=== PATIENT | female | born 1940 | race Caucasian/White ===

== ENCOUNTER 2016-09-19 21:22 | Inpatient (IN) | payer OTHER, MEDICARE ==
[~2016-09-19] VITALS: Ht 157.5 cm; Wt 83.9 kg
[~2016-09-19 21:22] MED LIST: BENA10TA PO; LANS30CA10 PO; MAXIDE PO; VALS160T2 PO
[2016-09-19 21:31] VITALS: BP_SYST 126
[2016-09-19] MEDS ORDERED: NACL 0.9% 1,000 ML IV ONE (21:43)
[2016-09-19 22:09] LABS: BASOPHILS % (AUTO) 0.3 % (0.0-2.0); EOSINOPHILS % (AUTO) 0.1 % (0.0-4.0); HEMATOCRIT 32.8 % (36-48); HEMOGLOBIN 11.5 g/dL (12.0-16.0); LYMPHOCYTES # (AUTO) 0.7 K/uL (1.0-5.5); LYMPHOCYTES % (AUTO) 11.9 % (20.5-51.5); MEAN CORPUSCULAR HEMOGLOBIN 38 pg (27-31); MEAN CORPUSCULAR HGB CONC 35 % (32-36); MEAN CORPUSCULAR VOLUME 109 fL (79.0-98.0); MONOCYTES # (AUTO) 0.6 K/uL (0.0-1.0); NEUTROPHILS # (AUTO) 4.4 K/uL (1.8-7.7); NEUTROPHILS % (AUTO) 76.7 % (40.0-70.0); PLATELET COUNT (AUTO) 258 K/uL (130-430); RED CELL DISTRIBUTION WIDTH 15.4 % (9.0-15.0); WHITE BLOOD COUNT (AUTO) 5.7 K/uL (4.8-10.8)
[2016-09-19 22:16] LABS: ANION GAP 7 (5-15); CALCIUM 8.7 mg/dL (8.4-11.0); CHLORIDE 105 mmol/L (98-107); GLUCOSE 96 mg/dL (70-99); POTASSIUM 3.6 mmol/L (3.5-5.1); SODIUM SERUM 138 mmol/L (136-145); UREA NITROGEN, BLOOD 17 mg/dL (8-21)
[2016-09-19 22:21] LABS: ALANINE AMINOTRANSFERASE 22 U/L (12-78); ALBUMIN 3.4 g/dL (3.4-4.8); ASPARTATE AMINOTRANSFERASE 22 U/L (10-37); TOTAL BILIRUBIN 0.5 mg/dL (0.0-1.0); TOTAL PROTEIN, SERUM 6.6 g/dL (6.4-8.3)
[2016-09-19 23:06] LABS: BILIRUBIN,URINE NEGATIVE (NEGATIVE); BLOOD, URINE NEGATIVE (NEGATIVE); CLARITY/URINE CLEAR (CLEAR); COLOR,URINE YELLOW (YELLOW); GLUCOSE,URINE NEGATIVE (NEGATIVE); KETONES,URINE NEGATIVE (NEGATIVE); LEUKOCYTE ESTERASE ,URINE 2+ (NEGATIVE); NITRITE, URINE NEGATIVE (NEGATIVE); PH,URINE 7.5 (5.0-8.0); PROTEIN URINE NEGATIVE (NEGATIVE); UROBILINOGEN,URINE 0.2 (0.2-1.0)
[2016-09-19 23:22] LABS: BACTERIA,URINE FEW /HPF (None Seen); RBC,URINE 0-3 /HPF (0-3); WBC,URINE 50-80 /HPF (0-3)
[2016-09-19 23:23] LABS: MUCUS,URINE None Seen /LPF (None Seen)
[2016-09-19] MEDS ORDERED: cefTRIAXone 1 GM IVPB PREMIX 50 ML IV ONE (23:45)
[2016-09-20] MEDS ORDERED: HYDROcodone/ACETAMIN 10-325 MG TAB PO ONE (00:45)
[2016-09-20] MEDS ORDERED: BENA20TA2 PO (01:25)
[2016-09-20] MEDS ORDERED: GLU500 PO (01:25)
[2016-09-20] MEDS ORDERED: POTA2TAB18 PO (01:25)
[2016-09-20] MEDS ORDERED: DOCU250C PO (01:25)
[2016-09-20] MEDS ORDERED: CALC-995 PO (01:25)
[2016-09-20] MEDS ORDERED: ALPH200T PO (01:25)
[2016-09-20] MEDS ORDERED: ESCI5TAB PO (01:25)
[2016-09-20] MEDS ORDERED: AMLO5TAB4 PO (01:25)
[2016-09-20] MEDS ORDERED: OMEG300C3 PO (01:25)
[2016-09-20] MEDS ORDERED: CAPE150T PO (01:25)
[2016-09-20] MEDS ORDERED: GABA-531 PO (01:25)
[2016-09-20] MEDS ORDERED: OMEP20CA10 PO (01:25)
[2016-09-20] MEDS ORDERED: METO50TA7 PO (01:25)
[2016-09-20] MEDS ORDERED: LIP10 PO (01:25)
[2016-09-20] MEDS ORDERED: BACL10TA PO (01:25)
[2016-09-20 01:54] VITALS: BP_SYST 142
[2016-09-20] MEDS ORDERED: HYDR-4100 PO (02:19)
[2016-09-20] MEDS: MORPHINE 2 MG/ML INJ. SYRINGE IVP PRN ×2 (03:53→09:39)
[2016-09-20 04:23] VITALS: BP_SYST 139
[2016-09-20] MEDS: HYDROcodone/ACETAMIN 10-325 MG TAB PO PRN ×2 (05:02→21:36)
[2016-09-20] MEDS ORDERED: PIPERACILLIN/TAZOBACTAM 3.375 GM/VIAL (ZOSYN) IV ONE (06:01)
[2016-09-20] MEDS: PIPERACILLIN/TAZO 3.375 GM in NS 50 ML IV SCH ×3 (06:24→17:32)
[2016-09-20 08:22] VITALS: BP_SYST 127
[2016-09-20] MEDS ORDERED: PANTOPRAZOLE SODIUM 40 MG TAB PO ONE (11:30)
[2016-09-20 11:44] VITALS: BP_SYST 134
[2016-09-20] MEDS ORDERED: POTASSIUM CHLORIDE 20 MEQ TAB.PRT.SR PO ONE (12:45)
[2016-09-20] MEDS: CALCIUM CARBONATE 500 MG/ TAB.CHEW PO PRN ×2 (12:47→20:27)
[2016-09-20 15:24] VITALS: BP_SYST 147
[2016-09-20] MEDS: ONDANSETRON HCL 4 MG/2 ML VIAL IVP PRN (17:32)
[2016-09-20 20:37] VITALS: BP_SYST 141
[2016-09-20] MEDS ORDERED: MILK OF MAGNESIA 30 ML UDC PO PRN (22:00)
[2016-09-21 00:01] VITALS: BP_SYST 147
[2016-09-21] MEDS: PIPERACILLIN/TAZO 3.375 GM in NS 50 ML IV SCH ×3 (00:39→11:49)
[2016-09-21] MEDS: MORPHINE 2 MG/ML INJ. SYRINGE IVP PRN (00:48)
[2016-09-21] MEDS: HYDROcodone/ACETAMIN 10-325 MG TAB PO PRN ×4 (03:20→21:59)
[2016-09-21 04:52] VITALS: BP_SYST 125
[2016-09-21 07:39] LABS: HEMATOCRIT 32.3 % (36-48); HEMOGLOBIN 11.1 g/dL (12.0-16.0); LYMPHOCYTES # (AUTO) 0.6 K/uL (1.0-5.5); LYMPHOCYTES % (AUTO) 11.5 % (20.5-51.5); MEAN CORPUSCULAR HEMOGLOBIN 38 pg (27-31); MEAN CORPUSCULAR HGB CONC 34 % (32-36); MEAN CORPUSCULAR VOLUME 110 fL (79.0-98.0); MONOCYTES # (AUTO) 0.7 K/uL (0.0-1.0); MONOCYTES % (AUTO) 14.7 % (1.7-9.3); NEUTROPHILS # (AUTO) 3.5 K/uL (1.8-7.7); NEUTROPHILS % (AUTO) 71.8 % (40.0-70.0); PLATELET COUNT (AUTO) 231 K/uL (130-430); RED BLOOD CELL COUNT(AUTO) 2.93 MIL/uL (4.2-6.2); RED CELL DISTRIBUTION WIDTH 15.1 % (9.0-15.0); WHITE BLOOD COUNT (AUTO) 4.8 K/uL (4.8-10.8)
[2016-09-21 08:01] VITALS: BP_SYST 138
[2016-09-21 08:05] LABS: ALANINE AMINOTRANSFERASE 38 U/L (12-78); ANION GAP 4 (5-15); ASPARTATE AMINOTRANSFERASE 37 U/L (10-37); CALCIUM 8.4 mg/dL (8.4-11.0); CHLORIDE 105 mmol/L (98-107); CHOLESTEROL 147 mg/dL (<200); CREATININE 0.88 mg/dL (0.55-1.30); GLUCOSE 113 mg/dL (70-99); HDL CHOLESTEROL 38 mg/dL (>55); LDL CHOLESTEROL 84 mg/dL (<100); POTASSIUM 3.6 mmol/L (3.5-5.1); SODIUM SERUM 137 mmol/L (136-145); THYROID STIMULATING HORMONE 3.21 uIu/mL (0.34-4.82); TOTAL BILIRUBIN 0.4 mg/dL (0.0-1.0); TOTAL PROTEIN, SERUM 6.1 g/dL (6.4-8.3); TRIGLYCERIDES 107 mg/dL (30-150); UREA NITROGEN, BLOOD 14 mg/dL (8-21)
[2016-09-21] MEDS: PANTOPRAZOLE SODIUM 40 MG TAB PO SCH (08:49)
[2016-09-21] MEDS ORDERED: HYDROcodone/ACETAMIN 10-325 MG TAB PO PRN (09:45)
[2016-09-21 11:33] VITALS: BP_SYST 133
[2016-09-21] MEDS: INSULIN REGULAR, HUMAN 100 UNITS/ML, 10 ML VIAL (novoLIN R) SUBCUT PRN (11:52)
[2016-09-21] MEDS: BACLOFEN 10 MG TABLET PO SCH ×2 (13:23→21:58)
[2016-09-21] MEDS ORDERED: cefTRIAXone 1 GM IVPB PREMIX 50 ML IV ONE (15:15)
[2016-09-21] MEDS ORDERED: PIPERACILLIN/TAZO 3.375 GM in NS 50 ML IV ONE (15:15)
[2016-09-21 15:26] VITALS: BP_SYST 141
[2016-09-21 19:30] VITALS: BP_SYST 149
[2016-09-21] MEDS: DOCUSATE SODIUM 250 MG CAPSULE PO SCH (20:26)
[2016-09-21] MEDS: BENAZEPRIL HCL 20 MG TABLET (LOTENSIN) PO SCH (20:27)
[2016-09-21] MEDS: ATORVASTATIN 10 MG TABLET PO SCH (20:27)
[2016-09-21] MEDS: GABAPENTIN 300 MG CAPSULE PO SCH (20:27)
[2016-09-21] MEDS: amLODIPine BESYLATE 5 MG TABLET PO SCH (20:28)
[2016-09-21] MEDS: METOPROLOL SUCCINATE 50 MG TAB.SR.24H (TOPROL XL) PO SCH (20:29)
[2016-09-22 00:53] VITALS: BP_SYST 137
[2016-09-22 04:15] VITALS: BP_SYST 132
[2016-09-22] MEDS: BACLOFEN 10 MG TABLET PO SCH ×3 (06:19→21:34)
[2016-09-22] MEDS: HYDROcodone/ACETAMIN 10-325 MG TAB PO PRN ×4 (06:32→21:43)
[2016-09-22 08:23] VITALS: BP_SYST 140
[2016-09-22] MEDS: CITALOPRAM HYDROBROMIDE 20 MG TABLET PO SCH (08:27)
[2016-09-22] MEDS: BENAZEPRIL HCL 20 MG TABLET (LOTENSIN) PO SCH ×2 (08:27→21:00)
[2016-09-22] MEDS: GABAPENTIN 300 MG CAPSULE PO SCH ×3 (08:27→21:35)
[2016-09-22] MEDS: OMEPRAZOLE 20 MG CAPSULE.DR (PriLOSEC) PO SCH (08:27)
[2016-09-22] MEDS: DOCUSATE SODIUM 250 MG CAPSULE PO SCH ×2 (08:27→21:33)
[2016-09-22] MEDS: amLODIPine BESYLATE 5 MG TABLET PO SCH ×2 (08:27→21:36)
[2016-09-22] MEDS: cefTRIAXone 1 GM IVPB PREMIX 50 ML IV SCH (08:28)
[2016-09-22] MEDS: PANTOPRAZOLE SODIUM 40 MG TAB PO SCH (08:34)
[2016-09-22] MEDS ORDERED: metFORMIN HCL 500 MG TABLET PO SCH (09:00)
[2016-09-22 12:00] VITALS: BP_SYST 140
[2016-09-22 16:11] VITALS: BP_SYST 133
[2016-09-22] MEDS: metFORMIN HCL 500 MG TABLET PO SCH (17:24)
[2016-09-22] MEDS: ONDANSETRON HCL 4 MG/2 ML VIAL IVP PRN (19:07)
[2016-09-22] MEDS: ATORVASTATIN 10 MG TABLET PO SCH (21:34)
[2016-09-22] MEDS: METOPROLOL SUCCINATE 50 MG TAB.SR.24H (TOPROL XL) PO SCH (21:36)
[2016-09-22 23:36] VITALS: BP_SYST 134
[2016-09-23 03:53] VITALS: BP_SYST 142
[2016-09-23] MEDS: BACLOFEN 10 MG TABLET PO SCH ×2 (07:00→14:00)
[2016-09-23] MEDS: HYDROcodone/ACETAMIN 10-325 MG TAB PO PRN (07:48)
[2016-09-23] MEDS: DOCUSATE SODIUM 250 MG CAPSULE PO SCH (07:49)
[2016-09-23] MEDS: OMEPRAZOLE 20 MG CAPSULE.DR (PriLOSEC) PO SCH (07:49)
[2016-09-23] MEDS: GABAPENTIN 300 MG CAPSULE PO SCH ×2 (07:49→15:00)
[2016-09-23] MEDS: PANTOPRAZOLE SODIUM 40 MG TAB PO SCH (07:49)
[2016-09-23] MEDS: BENAZEPRIL HCL 20 MG TABLET (LOTENSIN) PO SCH (07:49)
[2016-09-23] MEDS: amLODIPine BESYLATE 5 MG TABLET PO SCH (07:49)
[2016-09-23] MEDS: CITALOPRAM HYDROBROMIDE 20 MG TABLET PO SCH (07:50)
[2016-09-23 07:52] VITALS: BP_SYST 128
[2016-09-23] MEDS: cefTRIAXone 1 GM IVPB PREMIX 50 ML IV SCH (08:13)
[2016-09-23] MEDS: INSULIN REGULAR, HUMAN 100 UNITS/ML, 10 ML VIAL (novoLIN R) SUBCUT PRN (11:06)
[2016-09-23 12:00] VITALS: BP_SYST 156
[2016-09-23 12:53] VITALS: BP_SYST 133
[2016-09-23 16:00] VITALS: BP_SYST 142
[2016-09-23] MEDS: metFORMIN HCL 500 MG TABLET PO SCH (18:03)
[2016-09-23 20:09] VITALS: BP_SYST 143
== END 2016-09-23 20:05 | DRG 394 ==
LOC: SED 21:22 → STU 09-20 01:03 → SMU 09-22 09:46
PROVIDERS: ADMIT Internal Medicine Hospice and Palliative Medicine; ATTEND Internal Medicine Hospice and Palliative Medicine
DX: K52.0 Gastroenteritis and colitis due to radiation (principal); N39.0 Urinary tract infection, site not specified; C79.51 Secondary malignant neoplasm of bone; F11.20 Opioid dependence, uncomplicated; Z90.710 Acquired absence of both cervix and uterus; C50.919 Malignant neoplasm of unspecified site of unspecified female breast; E11.9 Type 2 diabetes mellitus without complications; G89.4 Chronic pain syndrome; I10 Essential (primary) hypertension; R29.6 Repeated falls; M54.5 Low back pain; K21.9 Gastro-esophageal reflux disease without esophagitis; K59.00 Constipation, unspecified; D53.9 Nutritional anemia, unspecified; R55 Syncope and collapse; E66.9 Obesity, unspecified; Z60.2 Problems related to living alone; F41.8 Other specified anxiety disorders; Y84.2 Radiological procedure and radiotherapy as the cause of abnormal reaction of the patient, or of later complication, without mention of misadventure at the time of the procedure; Z85.42 Personal history of malignant neoplasm of other parts of uterus; Z90.722 Acquired absence of ovaries, bilateral; Z90.49 Acquired absence of other specified parts of digestive tract; Z87.440 Personal history of urinary (tract) infections; Z87.891 Personal history of nicotine dependence; Z68.33 Body mass index [BMI] 33.0-33.9, adult; Z88.1 Allergy status to other antibiotic agents
CPT/HCPCS: 36415; 71010; 72100-TC; 80053; 80061; 81000-TC; 82962; 83880; 84443-TC; 84484; 85025; 87086; 93005; 93306; 96361; 96365; 97116-GP; 99285; J0696; J1815; J2270; J2405; J2543; J7030

== ENCOUNTER 2017-03-08 09:10 | Outpatient (CLI) | payer OTHER, MEDICARE ==
[~2017-03-08 09:10] MED LIST changes: +AMLO5TAB4 PO; +BACL10TA PO; -BENA10TA PO; +BENA20TA2 PO; +CALC-995 PO; +CAPE150T PO; +DOCU250C PO; +ESCI5TAB PO; +GABA-531 PO; +GLU500 PO; +HYDR-4100 PO; -LANS30CA10 PO; +LIP10 PO; -MAXIDE PO; +METO50TA7 PO; +OMEG300C3 PO; +OMEP20CA10 PO; +POTA2TAB18 PO; -VALS160T2 PO
[2017-03-08] MEDS ORDERED: DIATR MEGLU/DIATRIZ SOD 30 ML SOLUTION PO ONE (09:26)
[2017-03-08] MEDS ORDERED: IOHEXOL 100 ML IV ONE (11:04)
== END 2017-03-08 18:39 | disposition home or self-care (01) ==
LOC: SCT 09:10
PROVIDERS: ATTEND Internal Medicine Infectious Disease
DX: K46.9 Unspecified abdominal hernia without obstruction or gangrene (principal); J98.11 Atelectasis
CPT/HCPCS: 74177; Q9964; Q9967

== ENCOUNTER 2017-03-18 14:13 | Outpatient (CLI) | payer OTHER, MEDICARE ==
[2017-03-18 15:02] LABS: BILIRUBIN,URINE NEGATIVE (NEGATIVE); BLOOD, URINE NEGATIVE (NEGATIVE); CLARITY/URINE HAZY (CLEAR); COLOR,URINE YELLOW (YELLOW); GLUCOSE,URINE NEGATIVE (NEGATIVE); KETONES,URINE NEGATIVE (NEGATIVE); LEUKOCYTE ESTERASE ,URINE 2+ (NEGATIVE); NITRITE, URINE POSITIVE (NEGATIVE); PROTEIN URINE 1+ (NEGATIVE); UROBILINOGEN,URINE 0.2 (0.2-1.0)
[2017-03-18 15:10] LABS: BACTERIA,URINE MANY /HPF (None Seen); MUCUS,URINE None Seen /LPF (None Seen); RBC,URINE NONE SEEN /HPF (0-3); WBC,URINE 50-80 /HPF (0-3)
== END 2017-03-18 17:21 | disposition home or self-care (01) ==
LOC: SLB 14:13
PROVIDERS: ATTEND Internal Medicine Infectious Disease
DX: N39.0 Urinary tract infection, site not specified (principal)
CPT/HCPCS: 81000-TC; 87086; 87186-TC

== ENCOUNTER 2017-06-03 15:48 | Outpatient (CLI) | payer OTHER, MEDICARE ==
[2017-06-03 16:21] LABS: BILIRUBIN,URINE NEGATIVE (NEGATIVE); CLARITY/URINE CLOUDY (CLEAR); COLOR,URINE YELLOW (YELLOW); GLUCOSE,URINE NEGATIVE (NEGATIVE); KETONES,URINE TRACE (NEGATIVE); LEUKOCYTE ESTERASE ,URINE 2+ (NEGATIVE); NITRITE, URINE NEGATIVE (NEGATIVE); PROTEIN URINE 2+ (NEGATIVE); UROBILINOGEN,URINE 0.2 (0.2-1.0)
[2017-06-03 16:25] LABS: BLOOD, URINE TRACE (NEGATIVE)
[2017-06-03 16:31] LABS: BACTERIA,URINE FEW /HPF (None Seen); RBC,URINE 0-3 /HPF (0-3); URINE AMORPHOUS URATE 4+ /HPF (None Seen); WBC,URINE 20-50 /HPF (0-3)
== END 2017-06-03 17:41 | disposition home or self-care (01) ==
LOC: SLB 15:48
PROVIDERS: ATTEND Internal Medicine Infectious Disease
DX: N39.0 Urinary tract infection, site not specified (principal)
CPT/HCPCS: 81000-TC; 87086; 87186-TC

== ENCOUNTER 2017-07-20 09:22 | Outpatient (CLI) | payer OTHER, MEDICARE ==
[2017-07-20] MEDS ORDERED: BARIUM SULFATE 135 ML SUSP.RECON (E-Z-HD) PO ONE ×2 (09:38→09:47)
== END 2017-07-20 18:58 | disposition home or self-care (01) ==
LOC: SRD 09:22
PROVIDERS: ATTEND Internal Medicine Infectious Disease
DX: K44.9 Diaphragmatic hernia without obstruction or gangrene (principal); K21.9 Gastro-esophageal reflux disease without esophagitis; K22.4 Dyskinesia of esophagus; I10 Essential (primary) hypertension; E11.9 Type 2 diabetes mellitus without complications
CPT/HCPCS: 74220-TC

== ENCOUNTER → 2017-08-17 | Outpatient (CLI) | payer OTHER, MEDICARE ==
[2017-08-17 19:54] LABS: BILIRUBIN,URINE NEGATIVE (NEGATIVE); BLOOD, URINE NEGATIVE (NEGATIVE); CLARITY/URINE SL HAZY (CLEAR); COLOR,URINE YELLOW (YELLOW); GLUCOSE,URINE NEGATIVE (NEGATIVE); KETONES,URINE NEGATIVE (NEGATIVE); LEUKOCYTE ESTERASE ,URINE 1+ (NEGATIVE); NITRITE, URINE NEGATIVE (NEGATIVE); PH,URINE 5.5 (5.0-8.0); PROTEIN URINE NEGATIVE (NEGATIVE); UROBILINOGEN,URINE 0.2 (0.2-1.0)
[2017-08-17 20:11] LABS: BACTERIA,URINE FEW /HPF (None Seen); WBC,URINE NONE SEEN /HPF (0-3)
[2017-08-17 20:12] LABS: MUCUS,URINE None Seen /LPF (None Seen)
== END | disposition home or self-care (01) ==
LOC: SLB 19:25
PROVIDERS: ATTEND Internal Medicine Infectious Disease
DX: N39.0 Urinary tract infection, site not specified (principal)
CPT/HCPCS: 81000-TC; 87086; 87186-TC

== ENCOUNTER 2017-09-13 17:03 | Outpatient (CLI) | payer OTHER, MEDICARE ==
[2017-09-13 17:42] LABS: BILIRUBIN,URINE NEGATIVE (NEGATIVE); BLOOD, URINE NEGATIVE (NEGATIVE); CLARITY/URINE CLEAR (CLEAR); COLOR,URINE YELLOW (YELLOW); GLUCOSE,URINE NEGATIVE (NEGATIVE); KETONES,URINE NEGATIVE (NEGATIVE); LEUKOCYTE ESTERASE ,URINE TRACE (NEGATIVE); NITRITE, URINE POSITIVE (NEGATIVE); PH,URINE 5.5 (5.0-8.0); PROTEIN URINE NEGATIVE (NEGATIVE); UROBILINOGEN,URINE 0.2 (0.2-1.0)
[2017-09-13 18:07] LABS: RBC,URINE NONE SEEN /HPF (0-3)
[2017-09-13 18:08] LABS: BACTERIA,URINE MANY /HPF (None Seen); MUCUS,URINE 1+ /LPF (None Seen); WBC,URINE 20-50 /HPF (0-3)
== END 2017-09-13 19:31 | disposition home or self-care (01) ==
LOC: SLB 17:03
PROVIDERS: ATTEND Internal Medicine Infectious Disease
DX: N39.0 Urinary tract infection, site not specified (principal)
CPT/HCPCS: 81000-TC; 87086; 87186-TC

== ENCOUNTER 2018-04-20 11:32 | Inpatient (IN) | payer OTHER, MEDICARE ==
[~2018-04-20] VITALS: Ht 170.2 cm; Wt 85.7 kg
[~2018-04-20 11:32] MED LIST changes: -DOCU250C PO; +DOCU250C14 PO
[2018-04-20 11:45] VITALS: BP_SYST 119
[2018-04-20] MEDS ORDERED: COR25 PO (11:57)
[2018-04-20] MEDS ORDERED: BACL10TA PO (11:57)
[2018-04-20] MEDS ORDERED: MAGN400T10 PO (11:57)
[2018-04-20] MEDS ORDERED: CARV25TA55 PO (11:57)
[2018-04-20] MEDS ORDERED: RESV1CAP PO (11:57)
[2018-04-20] MEDS ORDERED: HYDR-2489 PO (11:57)
[2018-04-20] MEDS ORDERED: OMEP20CA10 PO (11:57)
[2018-04-20] MEDS ORDERED: VIS25 PO (11:57)
[2018-04-20] MEDS ORDERED: MELO15TA13 PO (11:57)
[2018-04-20] MEDS ORDERED: LUTE20TA PO (11:57)
[2018-04-20] MEDS ORDERED: FOLI-43 PO (11:57)
[2018-04-20] MEDS ORDERED: ALPHA-LIPOIC ACID PO (11:57)
[2018-04-20] MEDS ORDERED: OXYB15TA3 PO (11:57)
[2018-04-20] MEDS ORDERED: BENA20TA75 PO (11:57)
[2018-04-20] MEDS ORDERED: ESCI10TA PO (11:57)
[2018-04-20] MEDS ORDERED: ASPI-1153 PO (11:57)
[2018-04-20] MEDS ORDERED: LIP10 PO (11:57)
[2018-04-20] MEDS ORDERED: MORPHINE 4 MG/ML INJ. SYRINGE IVP ONE ×2 (13:00→17:15)
[2018-04-20 18:15] VITALS: BP_SYST 130
[2018-04-20] MEDS ORDERED: LORazepam 2 MG/ML VIAL IVP PRN (19:00)
[2018-04-20] MEDS ORDERED: ONDANSETRON HCL 4 MG/2 ML VIAL IVP PRN (19:00)
[2018-04-20] MEDS ORDERED: NON-FORMULARY MEDICATION (Hydrocodone/Acetaminophen (Norco 10-325 Tablet) 1 EACH) PO SCH (19:00)
[2018-04-20] MEDS ORDERED: ACETAMINOPHEN 325 MG TABLET PO PRN (19:00)
[2018-04-20] MEDS ORDERED: OXYBUTYNIN CHLORIDE 15 MG PO SCH (19:00)
[2018-04-20] MEDS ORDERED: METOPROLOL SUCCINATE 50 MG TAB.SR.24H (TOPROL XL) PO SCH (21:00)
[2018-04-20] MEDS ORDERED: NON-FORMULARY MEDICATION (Omega-3 Fatty Acids (Fish Oil) 300 MG) PO SCH (21:00)
[2018-04-20] MEDS ORDERED: CAPECITABINE 1500 MG PO SCH (21:00)
[2018-04-20] MEDS ORDERED: BENAZEPRIL HCL 20 MG TABLET (LOTENSIN) PO SCH (21:00)
[2018-04-20] MEDS: amLODIPine BESYLATE 5 MG TABLET PO SCH (21:00)
[2018-04-20] MEDS ORDERED: CARVEDILOL 25 MG TABLET (COREG) PO SCH (21:00)
[2018-04-20] MEDS ORDERED: NON-FORMULARY MEDICATION (Potassium Gluconate 500 MG) PO SCH (21:00)
[2018-04-20] MEDS ORDERED: BACLOFEN 10 MG TABLET PO SCH (22:00)
[2018-04-20] MEDS: ATORVASTATIN 10 MG TABLET PO SCH (22:20)
[2018-04-20] MEDS: DOCUSATE SODIUM 250 MG CAPSULE PO SCH (22:20)
[2018-04-20] MEDS: BENAZEPRIL HCL 20 MG TABLET (LOTENSIN) PO SCH (22:20)
[2018-04-20] MEDS: CARVEDILOL 25 MG TABLET (COREG) PO SCH (22:21)
[2018-04-20] MEDS: NORMAL SALINE 5 ML DISP.SYRIN IVF SCH (22:21)
[2018-04-20] MEDS: HYDROcodone/ACETAMIN 10-325 MG TAB PO PRN (22:28)
[2018-04-21 00:28] VITALS: BP_SYST 100
[2018-04-21] MEDS: NORMAL SALINE 5 ML DISP.SYRIN IVF SCH ×3 (06:26→21:54)
[2018-04-21 07:01] LABS: HEMATOCRIT 23.2 % (36-48); HEMOGLOBIN 7.9 g/dL (12.0-16.0); MEAN CORPUSCULAR HEMOGLOBIN 35 pg (27-31); MEAN CORPUSCULAR HGB CONC 34 % (32-36); MEAN CORPUSCULAR VOLUME 102 fL (79.0-98.0); RED BLOOD CELL COUNT(AUTO) 2.28 MIL/uL (4.2-6.2); WHITE BLOOD COUNT (AUTO) 4.4 K/uL (4.8-10.8)
[2018-04-21 07:02] LABS: BASOPHILS % (AUTO) 0.4 % (0.0-2.0); EOSINOPHILS # (AUTO) 0.2 K/uL (0.0-0.4); EOSINOPHILS % (AUTO) 4.7 % (0.0-4.0); LYMPHOCYTES # (AUTO) 0.5 K/uL (1.0-5.5); LYMPHOCYTES % (AUTO) 11.2 % (20.5-51.5); MONOCYTES # (AUTO) 0.5 K/uL (0.0-1.0); MONOCYTES % (AUTO) 12.2 % (1.7-9.3); NEUTROPHILS # (AUTO) 3.1 K/uL (1.8-7.7); NEUTROPHILS % (AUTO) 71.5 % (40.0-70.0); PLATELET COUNT (AUTO) 268 K/uL (130-430); RED CELL DISTRIBUTION WIDTH 15.9 % (9.0-15.0)
[2018-04-21 07:52] LABS: ANION GAP 8 (5-15); CALCIUM 8.9 mg/dL (8.4-11.0); CHLORIDE 103 mmol/L (98-107); CREATININE 0.91 mg/dL (0.55-1.30); GLUCOSE 118 mg/dL (70-99); POTASSIUM 4.7 mmol/L (3.5-5.1); SODIUM SERUM 138 mmol/L (136-145); UREA NITROGEN, BLOOD 28 mg/dL (8-21)
[2018-04-21] MEDS ORDERED: CARVEDILOL 25 MG TABLET (COREG) PO SCH (08:00)
[2018-04-21] MEDS: HYDROcodone/ACETAMIN 10-325 MG TAB PO PRN ×4 (08:29→23:00)
[2018-04-21 08:32] VITALS: BP_SYST 131
[2018-04-21] MEDS: amLODIPine BESYLATE 5 MG TABLET PO SCH ×2 (08:39→21:00)
[2018-04-21] MEDS: CITALOPRAM HYDROBROMIDE 20 MG TABLET PO SCH (08:39)
[2018-04-21] MEDS: MELOXICAM 7.5 MG TABLET PO SCH (08:39)
[2018-04-21] MEDS: CARVEDILOL 25 MG TABLET (COREG) PO SCH ×2 (08:40→21:52)
[2018-04-21] MEDS: FOLIC ACID 1 MG TABLET PO SCH (08:40)
[2018-04-21] MEDS: DOCUSATE SODIUM 250 MG CAPSULE PO SCH ×2 (08:40→21:51)
[2018-04-21] MEDS: OMEPRAZOLE 20 MG CAPSULE.DR (PriLOSEC) PO SCH (08:40)
[2018-04-21] MEDS: BENAZEPRIL HCL 20 MG TABLET (LOTENSIN) PO SCH ×2 (08:40→21:52)
[2018-04-21] MEDS: MAGNESIUM OXIDE 400 MG TABLET PO SCH (08:40)
[2018-04-21] MEDS: ASPIRIN 81 MG TABLET(ECOTRIN) PO SCH (08:41)
[2018-04-21] MEDS ORDERED: ESCITALOPRAM OXALATE 10 MG TABLET PO SCH ×3 (09:00)
[2018-04-21] MEDS ORDERED: BACLOFEN 10 MG TABLET PO SCH (09:00)
[2018-04-21] MEDS ORDERED: [UNRECOGNIZED DRUG - OTHER] PO SCH (09:00)
[2018-04-21] MEDS ORDERED: MAGNESIUM OXIDE 400 MG TABLET PO SCH (09:00)
[2018-04-21] MEDS ORDERED: NON-FORMULARY MEDICATION (Lutein 20 MG) PO SCH (09:00)
[2018-04-21] MEDS: GABAPENTIN 300 MG CAPSULE PO SCH ×5 (09:00→21:53)
[2018-04-21] MEDS ORDERED: OMEPRAZOLE 20 MG CAPSULE.DR (PriLOSEC) PO SCH (09:00)
[2018-04-21] MEDS ORDERED: ALPHA LIPOIC ACID 600 MG PO SCH (09:00)
[2018-04-21 12:25] VITALS: BP_SYST 108
[2018-04-21 16:13] VITALS: BP_SYST 106
[2018-04-21] MEDS: metFORMIN HCL 500 MG TABLET PO SCH (18:41)
[2018-04-21 19:15] VITALS: BP_SYST 140
[2018-04-21] MEDS: CALCIUM CARBONATE/VITAMIN D3 1 TAB TABLET PO SCH ×2 (21:50→21:55)
[2018-04-21] MEDS: BACLOFEN 10 MG TABLET PO SCH (21:51)
[2018-04-21] MEDS: ATORVASTATIN 10 MG TABLET PO SCH (21:52)
[2018-04-21] MEDS: HYDROcodone/ACETAMIN 5-325 MG TAB (NORCO/ VICODIN) PO PRN (21:54)
[2018-04-21 23:50] VITALS: BP_SYST 127
[2018-04-22] MEDS: HYDROcodone/ACETAMIN 5-325 MG TAB (NORCO/ VICODIN) PO PRN ×2 (02:00→10:41)
[2018-04-22] MEDS: HYDROcodone/ACETAMIN 10-325 MG TAB PO PRN ×4 (04:24→19:36)
[2018-04-22] MEDS: NORMAL SALINE 5 ML DISP.SYRIN IVF SCH ×3 (06:05→21:14)
[2018-04-22 07:05] LABS: HEMOGLOBIN 7.9 g/dL (12.0-16.0); RED BLOOD CELL COUNT(AUTO) 2.29 MIL/uL (4.2-6.2); WHITE BLOOD COUNT (AUTO) 4.7 K/uL (4.8-10.8)
[2018-04-22 07:06] LABS: BASOPHILS % (AUTO) 0.3 % (0.0-2.0); EOSINOPHILS % (AUTO) 4.1 % (0.0-4.0); HEMATOCRIT 23.3 % (36-48); LYMPHOCYTES # (AUTO) 0.4 K/uL (1.0-5.5); LYMPHOCYTES % (AUTO) 9.5 % (20.5-51.5); MEAN CORPUSCULAR HEMOGLOBIN 34 pg (27-31); MEAN CORPUSCULAR HGB CONC 34 % (32-36); MEAN CORPUSCULAR VOLUME 102 fL (79.0-98.0); MONOCYTES # (AUTO) 0.5 K/uL (0.0-1.0); MONOCYTES % (AUTO) 10.7 % (1.7-9.3); NEUTROPHILS # (AUTO) 3.6 K/uL (1.8-7.7); NEUTROPHILS % (AUTO) 75.4 % (40.0-70.0); PLATELET COUNT (AUTO) 240 K/uL (130-430); RED CELL DISTRIBUTION WIDTH 15.9 % (9.0-15.0)
[2018-04-22 07:07] LABS: EOSINOPHILS # (AUTO) 0.2 K/uL (0.0-0.4)
[2018-04-22 08:30] VITALS: BP_SYST 100
[2018-04-22 08:45] VITALS: BP_SYST 98
[2018-04-22 08:45] LABS: ANION GAP 11 (5-15); CHLORIDE 100 mmol/L (98-107); GLUCOSE 102 mg/dL (70-99); POTASSIUM 4.4 mmol/L (3.5-5.1); SODIUM SERUM 135 mmol/L (136-145)
[2018-04-22 08:46] LABS: CALCIUM 8.8 mg/dL (8.4-11.0); CREATININE 0.87 mg/dL (0.55-1.30); UREA NITROGEN, BLOOD 20 mg/dL (8-21)
[2018-04-22] MEDS: CITALOPRAM HYDROBROMIDE 20 MG TABLET PO SCH (08:58)
[2018-04-22] MEDS: CYANOCOBALAMIN 1000 mCg TABLET PO SCH (08:59)
[2018-04-22] MEDS: DOCUSATE SODIUM 250 MG CAPSULE PO SCH ×2 (08:59→21:14)
[2018-04-22] MEDS: amLODIPine BESYLATE 5 MG TABLET PO SCH ×2 (09:00→21:00)
[2018-04-22] MEDS: ASPIRIN 81 MG TABLET(ECOTRIN) PO SCH (09:00)
[2018-04-22] MEDS: FOLIC ACID 1 MG TABLET PO SCH (09:00)
[2018-04-22] MEDS: MAGNESIUM OXIDE 400 MG TABLET PO SCH (09:00)
[2018-04-22] MEDS: GABAPENTIN 300 MG CAPSULE PO SCH ×3 (09:00→21:11)
[2018-04-22] MEDS: OMEPRAZOLE 20 MG CAPSULE.DR (PriLOSEC) PO SCH (09:00)
[2018-04-22] MEDS: MELOXICAM 7.5 MG TABLET PO SCH (09:01)
[2018-04-22 10:09] LABS: TOTAL IRON BIND. CAPACITY 178 ug/dL (250-450)
[2018-04-22] MEDS: CARVEDILOL 25 MG TABLET (COREG) PO SCH ×2 (10:33→21:11)
[2018-04-22 10:34] VITALS: BP_SYST 119
[2018-04-22] MEDS: BENAZEPRIL HCL 20 MG TABLET (LOTENSIN) PO SCH ×2 (10:34→21:10)
[2018-04-22 11:37] VITALS: BP_SYST 130
[2018-04-22 16:25] VITALS: BP_SYST 138
[2018-04-22] MEDS: metFORMIN HCL 500 MG TABLET PO SCH (18:07)
[2018-04-22 20:00] VITALS: BP_SYST 124
[2018-04-22] MEDS: ATORVASTATIN 10 MG TABLET PO SCH (21:00)
[2018-04-22] MEDS: CALCIUM CARBONATE/VITAMIN D3 1 TAB TABLET PO SCH (21:08)
[2018-04-22] MEDS: BACLOFEN 10 MG TABLET PO SCH (21:12)
[2018-04-23 01:41] VITALS: BP_SYST 137
[2018-04-23] MEDS: HYDROcodone/ACETAMIN 10-325 MG TAB PO PRN ×4 (04:19→17:20)
[2018-04-23] MEDS: NORMAL SALINE 5 ML DISP.SYRIN IVF SCH ×2 (05:06→14:15)
[2018-04-23 08:17] LABS: ANION GAP 10 (5-15); CALCIUM 8.8 mg/dL (8.4-11.0); CHLORIDE 101 mmol/L (98-107); CREATININE 0.75 mg/dL (0.55-1.30); GLUCOSE 101 mg/dL (70-99); POTASSIUM 4.2 mmol/L (3.5-5.1); SODIUM SERUM 136 mmol/L (136-145); UREA NITROGEN, BLOOD 20 mg/dL (8-21)
[2018-04-23 08:18] LABS: BASOPHILS % (AUTO) 0.2 % (0.0-2.0); HEMOGLOBIN 8.2 g/dL (12.0-16.0); LYMPHOCYTES # (AUTO) 0.5 K/uL (1.0-5.5); LYMPHOCYTES % (AUTO) 9.8 % (20.5-51.5); MEAN CORPUSCULAR HEMOGLOBIN 35 pg (27-31); MEAN CORPUSCULAR HGB CONC 34 % (32-36); MEAN CORPUSCULAR VOLUME 101 fL (79.0-98.0); MONOCYTES # (AUTO) 0.6 K/uL (0.0-1.0); PLATELET COUNT (AUTO) 226 K/uL (130-430); RED BLOOD CELL COUNT(AUTO) 2.38 MIL/uL (4.2-6.2); RED CELL DISTRIBUTION WIDTH 15.6 % (9.0-15.0); WHITE BLOOD COUNT (AUTO) 5.4 K/uL (4.8-10.8)
[2018-04-23 08:19] LABS: EOSINOPHILS # (AUTO) 0.3 K/uL (0.0-0.4)
[2018-04-23 08:24] VITALS: BP_SYST 141
[2018-04-23] MEDS: BENAZEPRIL HCL 20 MG TABLET (LOTENSIN) PO SCH (08:42)
[2018-04-23] MEDS: CARVEDILOL 25 MG TABLET (COREG) PO SCH (08:43)
[2018-04-23] MEDS: FOLIC ACID 1 MG TABLET PO SCH (08:43)
[2018-04-23] MEDS: CYANOCOBALAMIN 1000 mCg TABLET PO SCH (08:44)
[2018-04-23] MEDS: GABAPENTIN 300 MG CAPSULE PO SCH ×2 (08:45→14:13)
[2018-04-23] MEDS: MAGNESIUM OXIDE 400 MG TABLET PO SCH (08:45)
[2018-04-23] MEDS: OMEPRAZOLE 20 MG CAPSULE.DR (PriLOSEC) PO SCH (08:45)
[2018-04-23] MEDS: ASPIRIN 81 MG TABLET(ECOTRIN) PO SCH (08:45)
[2018-04-23] MEDS: DOCUSATE SODIUM 250 MG CAPSULE PO SCH (08:45)
[2018-04-23] MEDS: CITALOPRAM HYDROBROMIDE 20 MG TABLET PO SCH (08:46)
[2018-04-23] MEDS: MELOXICAM 7.5 MG TABLET PO SCH (08:46)
[2018-04-23] MEDS: amLODIPine BESYLATE 5 MG TABLET PO SCH (09:00)
[2018-04-23] MEDS ORDERED: ATORVASTATIN 10 MG TABLET PO SCH (09:00)
[2018-04-23 09:39] LABS: ALANINE AMINOTRANSFERASE 22 U/L (12-78); ALBUMIN 2.2 g/dL (3.4-4.8); ASPARTATE AMINOTRANSFERASE 43 U/L (10-37); TOTAL BILIRUBIN 0.6 mg/dL (0.0-1.0)
[2018-04-23] MEDS: HYDROcodone/ACETAMIN 5-325 MG TAB (NORCO/ VICODIN) PO PRN ×2 (09:45→14:14)
[2018-04-23 12:30] VITALS: BP_SYST 132
[2018-04-23 16:12] VITALS: BP_SYST 141
[2018-04-23 16:55] VITALS: BP_SYST 139
[2018-04-23] MEDS: metFORMIN HCL 500 MG TABLET PO SCH (17:20)
[2018-04-26 15:24] LABS: CA 27.29 642.9 U/mL (0.0-38.6)
== END 2018-04-23 18:56 | DRG 535 ==
LOC: SED 11:32 → SMU 16:53
PROVIDERS: ADMIT Preventive Medicine Preventive Medicine/Occupational Environmental Medicine; ATTEND Preventive Medicine Preventive Medicine/Occupational Environmental Medicine
DX: S32.591A Other specified fracture of right pubis, initial encounter for closed fracture (principal); E43 Unspecified severe protein-calorie malnutrition; E78.5 Hyperlipidemia, unspecified; K21.9 Gastro-esophageal reflux disease without esophagitis; D64.9 Anemia, unspecified; D72.819 Decreased white blood cell count, unspecified; E11.65 Type 2 diabetes mellitus with hyperglycemia; G89.29 Other chronic pain; I10 Essential (primary) hypertension; W18.30XA Fall on same level, unspecified, initial encounter; Y93.89 Activity, other specified; Y92.89 Other specified places as the place of occurrence of the external cause; Y99.8 Other external cause status; Z85.3 Personal history of malignant neoplasm of breast; Z85.830 Personal history of malignant neoplasm of bone; Z88.1 Allergy status to other antibiotic agents; Z92.21 Personal history of antineoplastic chemotherapy; Z79.899 Other long term (current) drug therapy; Z79.82 Long term (current) use of aspirin
CPT/HCPCS: 36415; 71045; 72170-TC; 80048; 80053; 82378; 82728; 83540-TC; 83550-TC; 85025; 86300; 93005; 96374; 96375; 97116-GP; 97530-GP; 99285; J2270